=== PATIENT | female | born 1995 | race Caucasian/White ===

== ENCOUNTER 2017-07-30 00:41 | Emergency (ER) | payer SELFPAY ==
[~2017-07-30] VITALS: Ht 162.6 cm; Wt 68.0 kg
[~2017-07-30 00:41] MED LIST: ACET1TAB43 PO; BENZ56AE TP; CEFD300C3 PO; DBC1O30 TOP; DCS100C PO; FRS325T PO; Ibuprofen PO; NITR100C44 PO; PREN-93 PO
--- OUTSIDE RECORDS SUMMARY | 2017-07-30 00:50 | XMS REPORT ---
Author Author KAYODE DEE Organization [employer] Address Unknown Phone Unavailable Care Team Providers Care Commercial Mortgage Broker Name Role Phone KAYODE DEE CP Unavailable Allergies No Known Allergies Problems Problem Type Condition Code Onset Dates Condition Status Problem Allergic rhinitis due to pollen 477.0 Active Problem Routine or child health check V20.2 Active Problem Asthma, unspecified, unspecified status 493.90 Active Problem Other general medical examination for administrative purposes V70.3 Active Medications No Known Medications Results No Known Results Summary Purpose [employer] Submission
--- OUTSIDE RECORDS SUMMARY | 2017-07-30 00:50 | XMS REPORT ---
Author Author KAYODE DEE Organization [employer] Address Unknown Phone Unavailable Care Team Providers Care Delinquent Tax Collector Assistant Name Role Phone KAYODE DEE CP Unavailable [...]
--- OUTSIDE RECORDS SUMMARY | 2017-07-30 00:50 | XMS REPORT | Continuity of Care Document ---
Demographics Preferred Language Unknown Marital Status Unknown Sabianism Affiliation Unknown Race Unknown Ethnic Group Unknown Author Author [facility] Address Unknown Phone Unavailable Allergies Active Description Code Type Severity Reaction Onset Reported/Identified Relationship to Patient Clinical Status Yes No Known Allergies [id number] Drug Allergy Unknown N/A 09/21/2013 Medications There is no data. Problems Date Dx Coded Attending Type Code Diagnosis Diagnosed By 10/19/2012 477.0 ALLERGIC RHINITIS DUE TO POLLEN 10/19/2012 493.90 ASTHMA UNSPECIFIED 10/19/2012 V20.2 WELL CHILD 10/19/2012 V70.3 OTHER GENERAL MEDICAL EXAMINATION FOR ADMINISTRATIVE PURPOSES 06/09/2013 PIERRE PARKER DO Ot 655.73 DECR MOVEMNT ANTEPARTUM CONDITION 07/09/2013 PIERRE PARKER DO Ot 641.93 ANTEPART HEM NOS-ANTEPAR 09/21/2013 PIERRE PARKER DO Ot 644.13 THREAT LABOR NEC-ANTEPAR 09/23/2013 PIERRE PARKER DO Ot 648.91 OTH CURR COND-DELIVERED 09/23/2013 PIERRE PARKER DO Ot 659.71 ABN DEL FET HT RT/RHYTHM,W OR W/O MENTIO 09/23/2013 PIERRE PARKER DO Ot 664.31 DEL W 4 DEG LACERAT-DEL 09/23/2013 PIERRE PARKER DO Ot V02.51 GROUP B STREPT CARRIER/SUSPECTED CARRIER 09/23/2013 PIERRE PARKER DO Ot V06.1 [id number], COMBINED [ 09/23/2013 PIERRE PARKER DO Ot V27.0 DELIVER-SINGLE LIVEBORN 05/29/2015 JASMIN STYLES APRN Ot K52.9 NONINFECTIVE GASTROENTERITIS AND COLITIS 02/24/2016 CARLOS ANTHONY MD Ot J06.9 ACUTE UPPER RESPIRATORY INFECTION, UNSPE 02/24/2016 CARLOS ANTHONY MD Ot N39.0 URINARY TRACT INFECTION, SITE NOT SPECIF 02/24/2016 CARLOS ANTHONY MD Ot R05 COUGH 02/24/2016 CARLOS ANTHONY MD Ot S16.1XXA STRAIN OF MUSCLE, FASCIA AND TENDON AT N 02/24/2016 CARLOS ANTHONY MD Ot X58.XXXA EXPOSURE TO OTHER SPECIFIED FACTORS, INI 02/24/2016 CARLOS ANTHONY MD, Ot Y92.[address] OR NOT APPLICABLE 02/24/2016 CARLOS ANTHONY MD, Ot Y93.43 ACTIVITY, GYMNASTICS 02/24/2016 CARLOS ANTHONY MD Ot Y99.8 OTHER EXTERNAL CAUSE STATUS 02/25/2016 CARLOS ANTHONY MD, Ot J06.9 ACUTE UPPER RESPIRATORY INFECTION, UNSPE 02/25/2016 CARLOS ANTHONY MD, Ot N39.0 URINARY TRACT INFECTION, SITE NOT SPECIF 02/25/2016 CARLOS ANTHONY MD, Ot R05 COUGH 02/25/2016 CARLOS ANTHONY MD, Ot S16.1XXA STRAIN OF MUSCLE, FASCIA AND TENDON AT N 02/25/2016 ACRLOS ANTHONY MD, Ot X58.XXXA EXPOSURE TO OTHER SPECIFIED FACTORS, INI 02/25/2016 CARLOS ANTHONY MD, Ot Y92.[address] OR NOT APPLICABLE 02/25/2016 CARLOS ANTHONY MD, Ot Y93.43 ACTIVITY, GYMNASTICS 02/25/2016 CARLOS ANTHONY MD, Ot Y99.8 OTHER EXTERNAL CAUSE STATUS Procedures Code Description Performed By Performed On 72.71 VACUUM EXT DEL W EPISIOT 09/21/2013 Results Test Result Range Complete blood count (CBC) with automated white blood cell (WBC) differential - 02/23/16 22:40 Blood leukocytes automated count (number/volume) 7.4 10*3/uL 4.3-11.0 Blood erythrocytes automated count (number/volume) 4.69 10*6/uL 4.35-5.85 Venous blood hemoglobin measurement (mass/volume) 13.9 g/dL 11.5-16.0 Blood hematocrit (volume fraction) 41 % 35-52 Automated erythrocyte mean corpuscular volume 88 [foz_us] 80-99 Automated erythrocyte mean corpuscular hemoglobin (mass per erythrocyte) 30 pg 25-34 Automated erythrocyte mean corpuscular hemoglobin concentration measurement ( mass/volume) 34 g/dL 32-36 Automated erythrocyte distribution width ratio 13.2 % 10.0-14.5 Automated blood platelet count (count/volume) 290 10*3/uL 130-400 Automated blood platelet mean volume measurement 10.0 [foz_us] 7.4-10.4 Automated blood neutrophils/100 leukocytes 55 % 42-75 Automated blood lymphocytes/100 leukocytes 33 % 12-44 Blood monocytes/100 leukocytes 8 % 0-12 Automated blood eosinophils/100 leukocytes 4 % 0-10 Automated blood basophils/100 leukocytes 0 % 0-10 Blood neutrophils automated count (number/volume) 4.1 10*3 1.8-7.8 Blood lymphocytes automated count (number/volume) 2.4 10*3 1.0-4.0 Blood monocytes automated count (number/volume) 0.6 10*3 0.0-1.0 Automated eosinophil count 0.3 10*3/uL 0.0-0.3 Automated blood basophil count (count/volume) 0.0 10*3/uL 0.0-0.1 Influenza virus A and B antigen detection - 02/23/16 22:40 FLU RESULT NEGATIVE FOR INFLUENZA A AND B ANTIGENS BY IA [facility] Comprehensive metabolic panel - 02/23/16 22:40 Serum or plasma sodium measurement (moles/volume) 139 mmol/L 135-145 Serum or plasma potassium measurement (moles/volume) 3.9 mmol/L 3.6-5.0 Serum or plasma chloride measurement (moles/volume) 107 mmol/L 98-107 Carbon dioxide 20 mmol/L 21-32 Serum or plasma anion gap determination (moles/volume) 12 mmol/L 5-14 Serum or plasma urea nitrogen measurement (mass/volume) 13 mg/dL 7-18 Serum or plasma creatinine measurement (mass/volume) 0.76 mg/dL 0.60-1.30 Serum or plasma urea nitrogen/creatinine mass ratio 17 [facility] Serum or plasma creatinine measurement with calculation of estimated glomerular filtration rate > [facility] Serum or plasma glucose measurement (mass/volume) 91 mg/dL 70-105 Serum or plasma calcium measurement (mass/volume) 9.9 mg/dL 8.5-10.1 Serum or plasma total bilirubin measurement (mass/volume) 0.4 mg/dL 0.1-1.0 Serum or plasma alkaline phosphatase measurement (enzymatic activity/volume) 58 U/L 40-136 Serum or plasma aspartate aminotransferase measurement (enzymatic activity/ volume) 20 U/L 5-34 Serum or plasma alanine aminotransferase measurement (enzymatic activity/volume ) 9 U/L 0-55 Serum or plasma protein measurement (mass/volume) 7.8 g/dL 6.4-8.2 Serum or plasma albumin measurement (mass/volume) 4.6 g/dL 3.2-4.5 Serum or plasma C reactive protein measurement (mass/volume) - 02/23/16 22:40 Serum or plasma C reactive protein measurement (mass/volume) 2.07 mg /dL 0.00-0.50 Complete urinalysis with reflex to culture - 02/23/16 22:53 Urine color determination YELLOW NRG Urine clarity determination CLEAR NRG Urine pH measurement by test strip 7 5-9 Specific gravity of urine by test strip 1.010 1.016- 1.022 Urine protein assay by test strip, semi-quantitative NEGATIVE NEGATIVE Urine glucose detection by automated test strip NEGATIVE NEGATIVE Erythrocytes detection in urine sediment by light microscopy 1+ NEGATIVE Urine ketones detection by automated test strip NEGATIVE NEGATIVE Urine nitrite detection by test strip NEGATIVE NEGATIVE Urine total bilirubin detection by test strip NEGATIVE NEGATIVE Urine urobilinogen measurement by automated test strip (mass/volume) NORMAL NORMAL Urine leukocyte esterase detection by dipstick 3+ NEGATIVE Automated urine sediment erythrocyte count by microscopy (number/high power field) NONE NRG Automated urine sediment leukocyte count by microscopy (number/high power field ) [HPF] NRG Bacteria detection in urine sediment by light microscopy MODERATE NRG Squamous epithelial cells detection in urine sediment by light microscopy 25-50 NRG Crystals detection in urine sediment by light microscopy NONE NRG Casts detection in urine sediment by light microscopy NONE NRG Mucus detection in urine sediment by light microscopy NEGATIVE NRG Complete urinalysis with reflex to culture YES NRG Bacterial urine culture - 02/23/16 22:53 Bacterial urine culture [id number] NRG COLONY COUNT >100,000/ML NRG FTX;REPORTABLE PLUS MIXED GRAM POSITIVES NRG FREE TEXT ENTRY 2 <10,000/ML NRG Encounters ACCT No. Visit Date/Time Discharge Status Pt. Type Provider Facility Loc./Unit Complaint [id number] 10/19/2012 16:31:00 Document Registration [id number] 03/09/2012 08:45:05 RECURRING [id number] 02/23/2016 20:46:00 02/24/2016 02:15:00 DIS Emergency RAJ STRONG, CARLOS Delgado [facility] ER POSS SINUS INFECTION, NECK STIFFNESS, JAW PAIN [id number] 05/29/2015 19:49:00 05/29/2015 22:45:00 DIS Emergency JASMIN STYLES APRN [facility] ER VOMITING/DIARRHEA/L SIDE ABD PAIN [id number] 09/21/2013 10:28:00 09/23/2013 14:00:00 DIS Inpatient PIERRE PARKER DO [facility] LDRP LABOR [id number] 09/21/2013 00:53:00 09/21/2013 02:51:00 DIS Outpatient PIERRE PARKER DO [facility] WSo CTXS [id number] 07/08/2013 23:36:00 07/09/2013 00:22:00 DIS Outpatient PIERRE PARKER DO [facility] WSo CONTRACTIONS,FLUID LEAKING [id number] 06/08/2013 22:42:00 06/09/2013 00:35:00 DIS Outpatient PIERRE PARKER DO [facility] WSo DECREASED MOVEMENT
--- NOTE | 2017-07-30 01:13 | ED Psychosocial ---
General Chief Complaint: Psych/Social Disorder Stated Complaint: ABD PAIN,INTENTIONAL OVERDOSE Nursing Triage Note: pt presents to er with complaint of intentional overdose. states she took around 10 xanax to harm herself, but then was scared and threw them up. states she has been thinking about this for a while. Source: patient, family (mom) Exam Limitations: no limitations History of Present Illness Date Seen by Provider: Jul 30, 2017 Time Seen by Provider: 01:00 Initial Comments Patient presents to the ER by private conveyance with her mother and a chief complaint that she about 11:30 last night approximately 1-1/2 hours prior to arrival had taken around 10 Xanax is of unknown strength. They're not prescribed to her she got them from a friend. The patient is a poor historian and quite distraught and mostly just sobbing throughout the interview. She states that she has felt suicidal the last couple days. She has no prior suicide attempts nor inpatient psychiatric hospitalizations. Nothing is hurting nor she having any shortness of breath, chest pain, nausea or vomiting. She did vomit one time earlier after taking them pills and she thinks that she vomited most of them up. She does not feel sleepy. Mom states that the patient has not been in her life for the last couple years she doesn't know a lot about her more recent history other than the father of the patient's child is apparently dating someone else now and that seems to have been the catalyst for abby's suicide attempt. Allergies and Home Medications Allergies Coded Allergies: No Known Allergies (Verified Allergy, Unknown, 09/21/13) Patient Home Medication List Home Medication List Reviewed: Yes Constitutional: No chills, No fever EENTM: No ear discharge, No ear pain Respiratory: No cough, No short of breath, No wheezing Cardiovascular: No chest pain, No palpitations Gastrointestinal: No abdominal pain, No constipation, No diarrhea, No nausea; vomiting (times one immediately after taking the medicine) Genitourinary: No discharge, No dysuria Musculoskeletal: No back pain, No joint pain Skin: No pruritus, No rash Past Pypnpgc-Sdlyjh-Dvpcjz Hx Patient Social History Alcohol Use: Denies Use Recreational Drug Use: No Smoking Status: Never a Smoker Recent Foreign Travel: No Contact w/Someone Who Travel: No Recent Infectious Disease Expo: No Recent Hopitalizations: No Immunizations Up To Date Tetanus Booster (TDap): Less than 5yrs PED Vaccines UTD: No Date of Influenza Vaccine: Jan 19, 2013 Seasonal Allergies Seasonal Allergies: Yes Past Medical History Surgeries: No Respiratory: No Cardiac: No Neurological: No Reproductive Disorders: No Sexually Transmitted Disease: No HIV/AIDS: No Bladder Infection, UTI-Chronic Gastrointestinal: No Musculoskeletal: No Endocrine: No Cancer: No Psychosocial: No Integumentary: No Blood Disorders: No Adverse Reaction/Blood Tranf: No Family Medical History Cancer 19 MOTHER (maternal grandmother) Family history: Arthritis 19 MOTHER (maternal grandmother, rheumatoid) Family history: Diabetes mellitus 19 MOTHER (maternal grandmother) Headache 19 MOTHER (mother, migraines) No Family History of: Abdominal aortic aneurysm [place]'s disease Alcoholism Aphasia Cancer of colon Cataract Chest pain Congenital heart disease Congestive heart failure Cystic fibrosis Dementia Dysphagia Family history: Allergy Family history: Alzheimer's disease Family history: Asthma Family history: Breast disease Family history: Cardiovascular disease Family history: Coronary thrombosis Family history: Gastrointestinal disease Family history: Glaucoma Family history: Hypertension Family history: Osteoporosis Family history: Thyroid disorder Hearing loss Heart disease Hereditary disease History of - anemia History of - disorder History of - respiratory disease History of drug abuse Human immunodeficiency virus (HIV) seropositivity Hypercholesterolemia Infertile Kidney disease Malignant neoplasm of lung Myocardial infarction Parkinson's disease Prostate cancer Psychotic disorder Seizure disorder Stroke Tuberculosis Visual impairment No Pertinent Family Hx Physical Exam Vital Signs Vital Signs - First Documented 07/30/17 00:50 Temp 98.5 Pulse 97 Resp 30 B/P (MAP) 142/105 (117) Pulse Ox 97 O2 Delivery Room Air Capillary Refill : Less Than 3 Seconds General Appearance: WD/WN, no apparent distress HEENT: PERRL/EOMI, normal ENT inspection, pharynx normal Neck: non-tender, full range of motion, supple, normal inspection Respiratory: chest non-tender, lungs clear, normal breath sounds, no respiratory distress, no accessory muscle use Cardiovascular: normal peripheral pulses, regular rate, rhythm, no edema Peripheral Pulses: 2+ Radial Pulses (R), 2+ Radial Pulses (L) Gastrointestinal: normal bowel sounds, non tender, soft Neurologic/Psychiatric: alert, oriented x 3, other (anxious, tearful affect) Appearance/Memory: disheveled Behavior/Eye Contact: avoids eye contact, decreased rate of speech Thoughts/Hallucinations: no apparent hallucination Skin: normal color, warm/dry Progress/Results/Core Measures Lab Results Laboratory Tests Test 07/30/17 01:10 07/30/17 01:13 Range/Units White Blood Count 10.5 4.3-11.0 10^3/uL Red Blood Count 4.75 4.35-5.85 10^6/uL Hemoglobin 13.3 11.5-16.0 G/DL Hematocrit 41 35-52 % Mean Corpuscular Volume 86 80-99 FL Mean Corpuscular Hemoglobin 28 25-34 PG Mean Corpuscular Hemoglobin Concent 33 32-36 G/DL Red Cell Distribution Width 13.3 10.0-14.5 % Platelet Count 424 H 130-400 10^3/uL Mean Platelet Volume 9.8 7.4-10.4 FL Neutrophils (%) (Auto) 73 42-75 % Lymphocytes (%) (Auto) 18 12-44 % Monocytes (%) (Auto) 6 0-12 % Eosinophils (%) (Auto) 3 0-10 % Basophils (%) (Auto) 0 0-10 % Neutrophils # (Auto) 7.7 1.8-7.8 X 10^3 Lymphocytes # (Auto) 1.9 1.0-4.0 X 10^3 Monocytes # (Auto) 0.6 0.0-1.0 X 10^3 Eosinophils # (Auto) 0.3 0.0-0.3 10^3/uL Basophils # (Auto) 0.0 0.0-0.1 10^3/uL Sodium Level 140 135-145 MMOL/L Potassium Level 3.9 3.6-5.0 MMOL/L Chloride Level 108 H 98-107 MMOL/L Carbon Dioxide Level 21 21-32 MMOL/L Anion Gap 11 5-14 MMOL/L Blood Urea Nitrogen 12 7-18 MG/DL Creatinine 0.75 0.60-1.30 MG/DL Estimat Glomerular Filtration Rate > 60 BUN/Creatinine Ratio 16 Glucose Level 103 70-105 MG/DL Calcium Level 10.3 H 8.5-10.1 MG/DL Total Bilirubin 0.8 0.1-1.0 MG/DL Aspartate Amino Transf (AST/SGOT) 20 5-34 U/L Alanine Aminotransferase (ALT/SGPT) 15 0-55 U/L Alkaline Phosphatase 65 40-136 U/L Total Protein 8.3 H 6.4-8.2 GM/DL Albumin 4.9 H 3.2-4.5 GM/DL Salicylates Level < 5.0 L 5.0-20.0 MG/DL Acetaminophen Level < 10 L 10-30 UG/ML Serum Alcohol < 10 <10 MG/DL Urine Color YELLOW Urine Clarity SLIGHTLY CLOUDY Urine pH 7 5-9 Urine Specific [place] 1.015 L 1.016-1.022 Urine Protein NEGATIVE NEGATIVE Urine Glucose (UA) NEGATIVE NEGATIVE Urine Ketones 3+ H NEGATIVE Urine Nitrite NEGATIVE NEGATIVE Urine Bilirubin NEGATIVE NEGATIVE Urine Urobilinogen NORMAL NORMAL MG/DL Urine Leukocyte Esterase 3+ H NEGATIVE Urine RBC (Auto) NEGATIVE NEGATIVE Urine RBC NONE /HPF Urine WBC 5-10 H /HPF Urine Squamous Epithelial Cells 10-25 H /HPF Urine Crystals PRESENT H /LPF Urine Amorphous Sediment MOD FRED PHOSPHATE H /LPF Urine Bacteria FEW H /HPF Urine Casts NONE /LPF Urine Mucus SMALL H /LPF Urine Culture Indicated YES Urine Opiates Screen NEGATIVE NEGATIVE Urine Oxycodone Screen NEGATIVE NEGATIVE Urine Methadone Screen NEGATIVE NEGATIVE Urine Propoxyphene Screen NEGATIVE NEGATIVE Urine Barbiturates Screen NEGATIVE NEGATIVE Ur Tricyclic Antidepressants Screen NEGATIVE NEGATIVE Urine Phencyclidine Screen NEGATIVE NEGATIVE Urine Amphetamines Screen NEGATIVE NEGATIVE Urine Methamphetamines Screen NEGATIVE NEGATIVE Urine Benzodiazepines Screen NEGATIVE NEGATIVE Urine Cocaine Screen NEGATIVE NEGATIVE Urine Cannabinoids Screen NEGATIVE NEGATIVE My Orders Orders - W[facility]ACE OLMSTEAD Ua Culture If Indicated (07/30/17 01:06) Cbc With Automated Diff (07/30/17 01:06) Comprehensive Metabolic Panel (07/30/17 01:06) Alcohol (07/30/17 01:06) Drug Screen Stat (Urine) (07/30/17 01:06) Acetaminophen (07/30/17 01:06) Salicylate (07/30/17 01:06) Saline Lock/Iv-Start (07/30/17 01:06) Monitor-Rhythm Ecg Trace Only (07/30/17 01:06) Urine Culture (07/30/17 01:13) Vital Signs/I&O 07/30/17 00:50 Temp 98.5 Pulse 97 Resp 30 B/P (MAP) 142/105 (117) Pulse Ox 97 O2 Delivery Room Air Blood Pressure Mean: 117 Progress Note #1: Time: 01:12 Progress Note Going to go ahead and obtain urine and draw some labs and interview the patient after she's had some time to collect herself. Progress Note #2: Time: 01:48 Progress Note After discussing the case with the patient some more if she is medically cleared to go she would prefer to go home under her mother's care and follow up outpatient with Ana hawkins. We called the ana Hawkins and gave the patient's personal phone number so they can call her back at [phone]. They will contact her tonight and then again in the morning. Progress Note #3: Time: 02:29 Progress Note Patient's feeling much better still alert and awake and so not very much Xanax must made its way into her system. The [facility] did get a hold of her by phone and they With the plan that they would call the patient this morning after she had a chance to get some sleep. She is to go home with her mom and be watched. From medical standpoint she is cleared to discharge. Because she was having some dysuria we'll go ahead and treat her with Macrobid and follow the culture on her urinalysis. Departure Impression Primary Impression: Suicidal behavior Qualified Codes: T14.91XA - Suicide attempt, initial encounter Additional Impressions: Intentional benzodiazepine overdose Qualified Codes: T42.4X2A - Poisoning by benzodiazepines, intentional self- harm, initial encounter UTI (urinary tract infection) Qualified Codes: N30.00 - Acute cystitis without hematuria Disposition: HOME, SELF-CARE Condition: Stable Departure-Patient Inst. Decision time for Depature: 02:32 Referrals: FREDDY SAWANT DO (PCP/Family) Primary Care Physician Patient Instructions: SUICIDE CONTRACT Add. Discharge Instructions: Please keep your follow-up phone call with [phone] counselor. If you begin to feel suicidal again before you do anything permanent please contact a trusted family member, friend or return to the ER. All discharge instructions reviewed with patient and/or family. Voiced understanding. Copy Copies To 1: FREDDY SAWANT TITUS J Jul 30, 2017 01:13
[2017-07-30 01:19] LABS: BILIRUBIN,URINE NEGATIVE (NEGATIVE); CLARITY,URINE SLIGHTLY CLOUDY; COLOR,URINE YELLOW; GLUCOSE, URINE (UA) NEGATIVE (NEGATIVE); KETONES,URINE 3+ (NEGATIVE); LEUKOCYTE ESTERASE ,URINE 3+ (NEGATIVE); NITRITE,URINE NEGATIVE (NEGATIVE); PH,URINE 7 (5-9); PROTEIN,URINE NEGATIVE (NEGATIVE); UROBILINOGEN,URINE NORMAL (NORMAL)
[2017-07-30 01:21] LABS: BASOPHILS % (AUTO) 0 % (0-10); EOSINOPHILS # (AUTO) 0.3 10^3/uL (0.0-0.3); EOSINOPHILS % (AUTO) 3 % (0-10); HEMATOCRIT 41 % (35-52); HEMOGLOBIN 13.3 G/DL (11.5-16.0); LYMPHOCYTES # (AUTO) 1.9 X 10^3 (1.0-4.0); LYMPHOCYTES % (AUTO) 18 % (12-44); MEAN CORPUSCULAR HEMOGLOBIN 28 PG (25-34); MEAN CORPUSCULAR HGB CONC 33 G/DL (32-36); MEAN CORPUSCULAR VOLUME 86 FL (80-99); MEAN PLATELET VOLUME 9.8 FL (7.4-10.4); MONOCYTES # (AUTO) 0.6 X 10^3 (0.0-1.0); MONOCYTES % (AUTO) 6 % (0-12); NEUTROPHILS # (AUTO) 7.7 X 10^3 (1.8-7.8); NEUTROPHILS % (AUTO) 73 % (42-75); PLATELET COUNT 424 10^3/uL (130-400); RED BLOOD COUNT 4.75 10^6/uL (4.35-5.85); RED CELL DISTRIBUTION WIDTH 13.3 % (10.0-14.5); WHITE BLOOD COUNT 10.5 10^3/uL (4.3-11.0)
[2017-07-30 01:25] LABS: BACTERIA,URINE FEW /HPF
[2017-07-30 01:26] LABS: AMORPHOUS SEDIMENT,UR MOD AMOR PHOSPHATE /LPF
[2017-07-30 01:31] LABS: AMPHETAMINE SCREEN, URINE NEGATIVE (NEGATIVE); BARBITURATE SCREEN URINE NEGATIVE (NEGATIVE); BENZODIAZEPINES SCREEN URINE NEGATIVE (NEGATIVE); CANNABINOID SCREEN, URINE NEGATIVE (NEGATIVE); COCAINE SCREEN URINE NEGATIVE (NEGATIVE); METHADONE STAT NEGATIVE (NEGATIVE); METHAMPHETAMINE SCREEN URINE S NEGATIVE (NEGATIVE); OPIATE SCREEN URINE NEGATIVE (NEGATIVE); OXYCODONE STAT NEGATIVE (NEGATIVE); PROPOXYPHENE STAT NEGATIVE (NEGATIVE); TRICYCLIC ANTIDEPRESSANTS SCRE NEGATIVE (NEGATIVE)
[2017-07-30 02:04] LABS: ACETAMINOPHEN < 10 UG/ML (10-30); ALANINE AMINOTRANSFERASE 15 U/L (0-55); ALBUMIN 4.9 GM/DL (3.2-4.5); ALKALINE PHOSPHATASE 65 U/L (40-136); BILIRUBIN,TOTAL 0.8 MG/DL (0.1-1.0); BUN/CREATININE RATIO 16; CALCIUM 10.3 MG/DL (8.5-10.1); CARBON DIOXIDE 21 MMOL/L (21-32); CHLORIDE 108 MMOL/L (98-107); CREATININE SERUM 0.75 MG/DL (0.60-1.30); GFR ESTIMATED > 60; GLUCOSE 103 MG/DL (70-105); POTASSIUM 3.9 MMOL/L (3.6-5.0); SALICYLATE < 5.0 MG/DL (5.0-20.0); SODIUM 140 MMOL/L (135-145); TOTAL PROTEIN 8.3 GM/DL (6.4-8.2)
[2017-07-30] MEDS ORDERED: NITR100C PO (02:48)
[2017-07-30 02:50] VITALS: BP 142/105
== END 2017-07-30 02:50 | disposition home or self-care (01) ==
LOC: EDUNIT# 00:41 → ER 00:46
DX: T14.91XA Suicide attempt, initial encounter (principal); T42.4X2A Poisoning by benzodiazepines, intentional self-harm, initial encounter; N39.0 Urinary tract infection, site not specified; Z87.448 Personal history of other diseases of urinary system; Z87.440 Personal history of urinary (tract) infections
CPT/HCPCS: 36415; 80053; 80306; 80320; 80329; 81000; 85025; 87088; 87186; 93041

== ENCOUNTER 2021-12-09 10:42 | Emergency (ER) | payer BC ==
[~2021-12-09] VITALS: Ht 162.5 cm; Wt 75.0 kg
[~2021-12-09 10:42] MED LIST changes: +NITR100C PO
--- NOTE | 2021-12-09 11:12 | ED General ---
General Chief Complaint: Back Problems Stated Complaint: BACK/NECK PAIN/HEADACHE/FEVER/KIDNEY PAIN Nursing Triage Note: PT AMB TO ED BY POV WITH C/O NECK PAIN, L SIDED LOW BACK, SWANN, NAUSEA AND FEVER X 3 DAYS. SOB WHEN AMBULATING. DENIES VOMITING, DIARRHEA, PAIN OR DIFFICULTY URINATING. History of Present Illness Date Seen by Provider: Dec 09, 2021 Time Seen by Provider: 10:55 Initial Comments 25-year-old female presents emergency department today for fevers, headache, neck ache and bilateral flank pains. About a week ago she had some dysuria for couple of days. This resolved spontaneously. She is feeling relatively well until 3 days ago when she developed body aches headaches neck pain. Fever to 102 when taken orally. She describes bilateral flank pain as throbbing radiation. No aggravating or alleviating factors. No current urinary symptoms. She is currently on menstrual cycle without any concerning vaginal symptoms. No changes in her bowels. She has been vaccinated for COVID-19. No sick contacts. Allergies and Home Medications Allergies Coded Allergies: No Known Allergies (Verified Allergy, Unknown, 09/21/13) Patient Home Medication List Home Medication List Reviewed: Yes Nitrofurantoin Macrocrystal (Nitrofurantoin) 100 Mg Capsule, 100 MG PO BID Prescribed by: WALLACE OLMSTEAD on 07/30/17 0248 Review of Systems Review of Systems Constitutional: chills, fever, malaise EENTM: no symptoms reported Respiratory: cough, short of breath Cardiovascular: no symptoms reported Gastrointestinal: no symptoms reported Genitourinary: other (Flank pain) Musculoskeletal: muscle pain Skin: no symptoms reported Psychiatric/Neurological: No Symptoms Reported Hematologic/Lymphatic: No Symptoms Reported Immunological/Allergic: no symptoms reported Past Olxcuil-Swoiwl-Jqdxrd Hx Patient Social History Tobacco Use?: No Use of E-Cig and/or Vaping dev: No Substance use?: No Pt feels they are or have been: No Immunizations Up To Date Tetanus Booster (TDap): Less than 5yrs PED Vaccines UTD: No Seasonal Allergies Seasonal Allergies: Yes Past Medical History Surgeries: No Respiratory: No Cardiac: No Neurological: No Last Menstrual Period: Dec 07, 2021 Reproductive Disorders: No Sexually Transmitted Disease: No HIV/AIDS: No Bladder Infection, UTI-Chronic Gastrointestinal: No Musculoskeletal: No Endocrine: No Cancer: No Psychosocial: No Integumentary: No Blood Disorders: No Adverse Reaction/Blood Tranf: No Family Medical History Reviewed Nursing Family Hx Cancer 19 MOTHER (maternal grandmother) Family history: Arthritis 19 MOTHER (maternal grandmother, rheumatoid) Family history: Diabetes mellitus 19 MOTHER (maternal grandmother) Headache 19 MOTHER (mother, migraines) No Family History of: Abdominal aortic aneurysm Noman's disease Alcoholism Aphasia Cancer of colon Cataract Chest pain Congenital heart disease Congestive heart failure Cystic fibrosis Dementia Dysphagia Family history: Allergy Family history: Alzheimer's disease Family history: Asthma Family history: Breast disease Family history: Cardiovascular disease Family history: Coronary thrombosis Family history: Gastrointestinal disease Family history: Glaucoma Family history: Hypertension Family history: Osteoporosis Family history: Thyroid disorder Hearing loss Heart disease Hereditary disease History of - anemia History of - disorder History of - respiratory disease History of drug abuse Human immunodeficiency virus (HIV) seropositivity Hypercholesterolemia Infertile Kidney disease Malignant neoplasm of lung Myocardial infarction Parkinson's disease Prostate cancer Psychotic disorder Seizure disorder Stroke Tuberculosis Visual impairment No Pertinent Family Hx Physical Exam Vital Signs Vital Signs - First Documented 12/09/21 11:00 Temp 36.9 Pulse 124 Resp 18 B/P (MAP) 144/79 (100) Pulse Ox 98 O2 Delivery Room Air Capillary Refill : Less Than 3 Seconds Height, Weight, BMI Height: 5'4.00" Weight: 150lbs. oz. [id number]; 28.00 BMI Method:Stated General Appearance: No Apparent Distress, WD/WN HEENT: PERRL/EOMI, TMs Normal, Normal ENT Inspection, Pharynx Normal Neck: Normal Inspection, Non Tender, Supple Respiratory: Chest Non Tender, Lungs Clear, Normal Breath Sounds, No Accessory Muscle Use, No Respiratory Distress Cardiovascular: No Edema, No Gallop, No JVD, No Murmur, Normal Peripheral Pulses, Tachycardia Gastrointestinal: Normal Bowel Sounds, No Organomegaly, No Pulsatile Mass, Non Tender, Soft Back: Normal Inspection, No Vertebral Tenderness, Other (Mild bilateral CVA tenderness.) Extremity: Normal Capillary Refill, Normal Inspection, Normal Range of Motion, Non Tender, No Calf Tenderness, No Pedal Edema Neurologic/Psychiatric: Alert, Oriented x3, Normal Mood/Affect Skin: Normal Color, Warm/Dry Lymphatic: No Adenopathy Focused Exam Lactate Level 12/09/21 11:20: Lactic Acid Level 0.88 Lactic Acid Level Laboratory Tests Test 12/09/21 11:20 Lactic Acid Level 0.88 MMOL/L (0.50-2.00) Progress/Results/Core Measures Suspected Sepsis SIRS Temperature: Pulse: 124 Respiratory Rate: 18 Laboratory Tests 12/09/21 11:10: White Blood Count 16.0H Blood Pressure 144 /79 Mean: 100 12/09/21 11:20: Lactic Acid Level 0.88 Laboratory Tests 12/09/21 11:10: Creatinine 0.79, Platelet Count 290, Total Bilirubin 0.7 Results/Orders Lab Results Laboratory Tests Test 12/09/21 11:00 12/09/21 11:10 12/09/21 11:15 12/09/21 11:20 Range/Units SARS-CoV-2 RNA (RT-PCR) Not Detected Not Detecte White Blood Count 16.0 H 4.3-11.0 10^3/uL Red Blood Count 4.39 3.80-5.11 10^6/uL Hemoglobin 12.2 11.5-16.0 g/dL Hematocrit 37 35-52 % Mean Corpuscular Volume 84 80-99 fL Mean Corpuscular Hemoglobin 28 25-34 pg Mean Corpuscular Hemoglobin Concent 33 32-36 g/dL Red Cell Distribution Width 15.9 H 10.0-14.5 % Platelet Count 290 130-400 10^3/uL Mean Platelet Volume 9.6 9.0-12.2 fL Immature Granulocyte % (Auto) 0 % Neutrophils (%) (Auto) 88 H 42-75 % Lymphocytes (%) (Auto) 6 L 12-44 % Monocytes (%) (Auto) 6 0-12 % Eosinophils (%) (Auto) 0 0-10 % Basophils (%) (Auto) 0 0-10 % Neutrophils # (Auto) 14.0 H 1.8-7.8 10^3/uL Lymphocytes # (Auto) 0.9 L 1.0-4.0 10^3/uL Monocytes # (Auto) 1.0 0.0-1.0 10^3/uL Eosinophils # (Auto) 0.0 0.0-0.3 10^3/uL Basophils # (Auto) 0.1 0.0-0.1 10^3/uL Immature Granulocyte # (Auto) 0.1 0.0-0.1 10^3/uL Neutrophils % (Manual) 81 % Lymphocytes % (Manual) 10 % Monocytes % (Manual) 3 % Eosinophils % (Manual) 0 % Basophils % (Manual) 0 % Band Neutrophils 6 % Blood Morphology Comment NORMAL Sodium Level 140 135-145 MMOL/L Potassium Level 3.5 L 3.6-5.0 MMOL/L Chloride Level 107 98-107 MMOL/L Carbon Dioxide Level 18 L 21-32 MMOL/L Anion Gap 15 H 5-14 MMOL/L Blood Urea Nitrogen 12 7-18 MG/DL Creatinine 0.79 0.60-1.30 MG/DL Estimat Glomerular Filtration Rate 106 BUN/Creatinine Ratio 15 Glucose Level 110 H 70-105 MG/DL Calcium Level 9.4 8.5-10.1 MG/DL Corrected Calcium 9.5 8.5-10.1 MG/DL Total Bilirubin 0.7 0.1-1.0 MG/DL Aspartate Amino Transf (AST/SGOT) 17 5-34 U/L Alanine Aminotransferase (ALT/SGPT) 21 0-55 U/L Alkaline Phosphatase 73 40-136 U/L Total Protein 7.5 6.4-8.2 GM/DL Albumin 3.9 3.2-4.5 GM/DL Serum Test, Qualitative NEGATIVE NEGATIVE Urine Color YELLOW Urine Clarity CLEAR Urine pH 6.0 5-9 Urine Specific Victoria >=1.030 1.016-1.022 Urine Protein 2+ H NEGATIVE Urine Glucose (UA) NEGATIVE NEGATIVE Urine Ketones NEGATIVE NEGATIVE Urine Nitrite POSITIVE H NEGATIVE Urine Bilirubin NEGATIVE NEGATIVE Urine Urobilinogen 0.2 < = 1.0 MG/DL Urine Leukocyte Esterase 2+ H NEGATIVE Urine RBC (Auto) 3+ H NEGATIVE Urine RBC 10-25 H /HPF Urine WBC 50-100 H /HPF Urine Squamous Epithelial Cells RARE /HPF Urine Crystals NONE /LPF Urine Bacteria MODERATE H /HPF Urine Casts NONE /LPF Urine Mucus NEGATIVE /LPF Urine Culture Indicated YES Lactic Acid Level 0.88 0.50-2.00 MMOL/L My Orders Orders - YULY JENKINS DO Cbc With Automated Diff (12/09/21 11:06) Comprehensive Metabolic Panel (12/09/21 11:06) Blood Culture (12/09/21 11:06) Urinalysis (12/09/21 11:06) Urine Culture (12/09/21 11:06) Chest 1 View, Ap/Pa Only (12/09/21 11:06) Acetaminophen Tablet (Tylenol Tablet) (12/09/21 11:15) Ed Iv/Invasive Line Start (12/09/21 11:06) Vital Signs Adult Sepsis Patie Q15M (12/09/21 11:06) Lactic Acid Analyzer (12/09/21 11:06) Lactated Ringers (Lr 1000 Ml Iv Solution (12/09/21 11:15) Covid 19 Inhouse Test (12/09/21 11:06) Hcg,Qualitative Serum (12/09/21 11:06) Manual Differential (12/09/21 11:10) Ceftriaxone 1 Gm Pre-Mix (Rocephin 1 Gm (12/09/21 12:00) Fentanyl Inj (Sublimaze Injection) (12/09/21 12:30) Medications Given in ED Current Medications Medications Dose Ordered Sig/Sravanthi Route Start Time Stop Time Status Last Admin Dose Admin Acetaminophen 1,000 mg ONCE PRN PO 12/09/21 11:15 12/09/21 11:18 DC 12/09/21 11:18 1,000 MG Ceftriaxone Sodium/Dextrose 50 ml @ 100 mls/hr ONCE ONCE IV 12/09/21 12:00 12/09/21 12:29 12/09/21 12:13 100 MLS/HR Lactated Ringer's 1,000 ml @ 0 mls/hr Q0M ONCE IV 12/09/21 11:15 12/09/21 11:16 DC 12/09/21 11:17 0 MLS/HR Vital Signs/I&O 12/09/21 11:00 Temp 36.9 Pulse 124 Resp 18 B/P (MAP) 144/79 (100) Pulse Ox 98 O2 Delivery Room Air Capillary Refill : Less Than 3 Seconds Blood Pressure Mean: 100 Departure Communication (Admissions) Patient is hemodynamically stable. Feeling better after parenteral therapies. He appears to have pyelonephritis. Given IV antibiotics here and discharged home with antibiotics and strict return precautions. Advise follow-up with her primary doctor in 48 to 72 hours Impression Primary Impression: Pyelonephritis Disposition: 01 HOME, SELF-CARE Condition: Stable Departure-Patient Inst. Decision time for Depature: 12:29 Referrals: FREDDY SAWANT DO (PCP/Family) Primary Care Physician Add. Discharge Instructions: Keep the antibiotics as prescribed until gone. Alternate Motrin and Tylenol for pain and fevers. Increase your fluids at home. Return to the emergency department if your symptoms are not improving in 24 hours or if they change in any way concerning to you. Follow-up with your primary doctor in the next 48 to 72 hours All discharge instructions reviewed with patient and/or family. Voiced understanding. Scripts Ciprofloxacin HCl (Ciprofloxacin HCl) 500 Mg Tablet 500 MG PO BID for 10 Days, #20 TAB Prov: YULY JENKINS DO 12/09/21 YULY JENKINS DO Dec 09, 2021 11:12
[2021-12-09] MEDS ORDERED: LACTATED RINGERS 1,000 ML IV ONE (11:15)
[2021-12-09] MEDS ORDERED: ACETAMINOPHEN 500 MG TAB (TYLENOL) PO PRN (11:15)
[2021-12-09 11:17] LABS: BASOPHILS # (AUTO) 0.1 10^3/uL (0.0-0.1); BASOPHILS % (AUTO) 0 % (0-10); EOSINOPHILS % (AUTO) 0 % (0-10); HEMATOCRIT 37 % (35-52); HEMOGLOBIN 12.2 g/dL (11.5-16.0); LYMPHOCYTES # (AUTO) 0.9 10^3/uL (1.0-4.0); LYMPHOCYTES % (AUTO) 6 % (12-44); MEAN CORPUSCULAR HEMOGLOBIN 28 pg (25-34); MEAN CORPUSCULAR HGB CONC 33 g/dL (32-36); MEAN CORPUSCULAR VOLUME 84 fL (80-99); MEAN PLATELET VOLUME 9.6 fL (9.0-12.2); MONOCYTES % (AUTO) 6 % (0-12); NEUTROPHILS % (AUTO) 88 % (42-75); PLATELET COUNT 290 10^3/uL (130-400)
[2021-12-09 11:32] LABS: ALBUMIN 3.9 GM/DL (3.2-4.5); POTASSIUM 3.5 MMOL/L (3.6-5.0)
[2021-12-09 11:33] LABS: CALCIUM 9.4 MG/DL (8.5-10.1)
[2021-12-09 11:34] LABS: TOTAL PROTEIN 7.5 GM/DL (6.4-8.2)
[2021-12-09 11:36] LABS: BILIRUBIN,TOTAL 0.7 MG/DL (0.1-1.0)
[2021-12-09 11:38] LABS: CREATININE SERUM 0.79 MG/DL (0.60-1.30)
[2021-12-09 11:40] LABS: BILIRUBIN,URINE NEGATIVE (NEGATIVE); CLARITY,URINE CLEAR; COLOR,URINE YELLOW; GLUCOSE, URINE (UA) NEGATIVE (NEGATIVE); KETONES,URINE NEGATIVE (NEGATIVE); LEUKOCYTE ESTERASE ,URINE 2+ (NEGATIVE); NITRITE,URINE POSITIVE (NEGATIVE); PROTEIN,URINE 2+ (NEGATIVE)
[2021-12-09 11:41] LABS: BAND NEUTROPHILS 6 %; BASOPHILS % (MANUAL) 0 %; EOSINOPHILS % (MANUAL) 0 %; LYMPHOCYTES % (MANUAL) 10 %; MONOCYTES % (MANUAL) 3 %; NEUTROPHILS % (MANUAL) 81 %; RBC MORPH NORMAL
[2021-12-09 11:47] LABS: BACTERIA,URINE MODERATE /HPF; SQUAMOUS EPITHELIAL CELL,UR RARE /HPF; WBC,URINE 50-100 /HPF
[2021-12-09] MEDS ORDERED: cefTRIAXone 1 GM PRE-MIX 50 ML IV ONE (12:00)
[2021-12-09] MEDS ORDERED: CIPR500T5 PO (12:30)
[2021-12-09] MEDS ORDERED: fentaNYL INJ 100 MCG/2 ML AMP IVP ONE (12:30)
--- NOTE | 2021-12-09 12:45 | Diagnostic Imaging Report ---
Indication: Dyspnea and fever. Comparison: None. Discussion: Single portable upright view of the chest was obtained. Normal heart size. No consolidation, pleural fluid, or pneumothorax. No osseous abnormality. Impression: 1. Negative chest. Dictated by: Dictated on workstation # [id number]
[2021-12-09 12:50] VITALS: BP 132/84
== END 2021-12-09 12:50 | disposition home or self-care (01) ==
LOC: EDUNIT# 10:42 → ER 10:45
DX: N12 Tubulo-interstitial nephritis, not specified as acute or chronic (principal); Z20.822 Contact with and (suspected) exposure to COVID-19
CPT/HCPCS: 36415; 71045; 80053; 81000; 83605; 84703; 85007; 85027; 87040; 87077; 87088; 87186; 87636